=== PATIENT | female | born 1980 | race Caucasian/White ===

== ENCOUNTER 2016-09-07 14:14 | Emergency (ER) | payer OTHER ==
[~2016-09-07] VITALS: Ht 175.3 cm; Wt 75.0 kg
[2016-09-07 14:16] VITALS: BP 128/82; PULSE 87; RESP 16; TEMP 98.5; O2SAT 99
[2016-09-07] MEDS ORDERED: TETANUS/DIPHTHERIA TOXOID ADULT 0.5 ML VIAL IM ONE (15:15)
--- NOTE | 2016-09-07 15:15 | PD ---
HPI Chief Complaint: Laceration/Skin Injury Time Seen by Provider: 15:00 Travel History International Travel<30 days: No Contact w/Intl Traveler<30days: No Traveled to known affect area: No History of Present Illness HPI 35-year-old female presents to the emergency room for evaluation of laceration to her left thumb that occurred just prior to arrival. Patient cut herself on ceramic tile. States it was bleeding quite a bit and she has history of anemia. Patient reports extreme pain over the laceration. She has not taken anything for her symptoms. She ran the wound under cold water, wrapped it, and came to the ED. Unknown last tetanus. PFSH Past Medical History Medical History: Denies Significant Hx Tetanus Vaccination: > 5 Years ?: Unknown LMP: 1st week of July Past Surgical History Abdominal Surgery: Yes (gastric bypass) Social History Alcohol Use: No Tobacco Use: No Substance Use: No Allergies-Medications (Allergen,Severity, Reaction): Coded Allergies: No Known Allergies (Unverified , 09/07/16) Reported Meds & Prescriptions Reported Meds & Active Scripts Active No Active Prescriptions or Reported Medications Review of Systems Except as stated in HPI: all other systems reviewed are Neg Physical Exam Narrative GENERAL: Well-nourished, well-developed female in no acute distress. Afebrile. Ambulatory. SKIN: Focused skin assessment warm/dry. 0.5 cm superficial laceration to the left dorsal thumb. Extremely tender to palpation. Not bleeding. HEAD: Normocephalic. EYES: No scleral icterus. No injection or drainage. NECK: Supple, trachea midline. No JVD or lymphadenopathy. CARDIOVASCULAR: Regular rate and rhythm without murmurs, gallops, or rubs. RESPIRATORY: Breath sounds equal bilaterally. No accessory muscle use. MUSCULOSKELETAL: No cyanosis, or edema. Full range motion of the thumb. Less than 2 second capillary refill distally. Data Data Last Documented VS Vital Signs Date Time Temp Pulse Resp B/P Pulse Ox O2 Delivery O2 Flow Rate FiO2 09/07/16 14:16 98.5 87 16 128/82 99 MDM Medical Decision Making Medical Screen Exam Complete: Yes Emergency Medical Condition: Yes Medical Record Reviewed: Yes Differential Diagnosis Laceration, abrasion, foreign body Narrative Course 35-year-old female presents to the emergency room for evaluation of a laceration to her left thumb that occurred just prior to arrival. Patient cut herself on ceramic. There is no foreign body. Laceration is extremely superficial. 0.5 cm. Not bleeding. It was repaired with glue and Steri- Strips. Patient updated on tetanus. Discharged with wound care instructions. Diagnosis Primary Impression: Laceration of left thumb Qualified Code: S61.012A - Laceration of left thumb without foreign body without damage to nail, initial encounter Referrals: Primary Care Physician Patient Instructions: Finger Laceration (ED), General Instructions Additional Instructions: Rest and drink plenty of fluids. Keep clean and dry. Follow-up with a primary care physician. Return to the emergency room for worsening symptoms. Med/Other Pt SpecificInfo: Prescription(s) given Scripts No Active Prescriptions or Reported Meds Disposition: 01 DISCHARGE HOME Condition: Stable Georgie Brenner Sep 07, 2016 15:15
== END 2016-09-07 15:33 | disposition home or self-care (01) ==
LOC: PHEFT 14:14
DX: S61.012A Laceration without foreign body of left thumb without damage to nail, initial encounter (principal); W26.9XXA Contact with unspecified sharp object(s), initial encounter
CPT/HCPCS: 12001; 90471; 90714